=== PATIENT | female | born 1960 | race Two or more races ===

== ENCOUNTER → 2017-03-07 | Outpatient (REF) | payer OTHER, MEDICARE ==
[~2017-03-07] MED LIST: ASPI81TA85 PO; BUSP10TA PO; CALC250T PO; CLIM0.05 TD; CO Q100C10 PO; GABA-283 PO; LEVO75TA34 PO; LIDO5DIS41 TD; LIPI20TA PO; MAGN250T11 PO; MULTLIQ7 PO; MUTIVITAMIN PO; POTA10CA32 PO; SPIR25TA2 PO; TORS20TA2 PO; XANA0.25 PO; [UNRECOGNIZED DRUG - OTHER] PO
[2017-03-07 18:36] LABS: BACTERIA, URINE SMALL AMOUNT; HYALINE CAST, URINE NONE SEEN /lpf (0-1); MICROSCOPIC EXAM PERFORMED; SQUAMOUS EPITHELIAL CELL URINE LARGE AMOUNT /hpf (SMALL AMT); WBC, URINE 20-30 /hpf (0-3)
== END ==
LOC: M SMT 16:37
PROVIDERS: ATTEND Specialist
DX: R33.9 Retention of urine, unspecified (principal); R35.0 Frequency of micturition

== ENCOUNTER → 2017-03-21 | Outpatient (REF) | payer OTHER, MEDICARE ==
[2017-03-21 18:38] LABS: BACTERIA, URINE NONE SEEN; HYALINE CAST, URINE NONE SEEN /lpf (0-1); MICROSCOPIC EXAM PERFORMED; RBC, URINE NONE SEEN /hpf (0-3); SQUAMOUS EPITHELIAL CELL URINE NONE SEEN /hpf (SMALL AMT); WBC, URINE NONE SEEN /hpf (0-3)
== END ==
LOC: M SMT 16:52
PROVIDERS: ATTEND Specialist
DX: N39.0 Urinary tract infection, site not specified (principal)

== ENCOUNTER → 2017-09-24 | Outpatient (CLI) | payer MEDICARE, MEDICAID | LOC: M RAD 13:53 | DX: M79.651 Pain in right thigh (principal); L03.115 Cellulitis of right lower limb; Z86.718 Personal history of other venous thrombosis and embolism | CPT/HCPCS: 93971 ==

== ENCOUNTER → 2018-02-22 | Outpatient (CLI) | payer MEDICARE, MEDICAID | LOC: M PLARAD 07:32 | DX: M51.27 Other intervertebral disc displacement, lumbosacral region (principal); M51.36 Other intervertebral disc degeneration, lumbar region; M47.816 Spondylosis without myelopathy or radiculopathy, lumbar region; M79.1 Myalgia; M46.1 Sacroiliitis, not elsewhere classified | CPT/HCPCS: 72148 ==

== ENCOUNTER 2018-08-01 00:04 | Emergency (ER) | payer MEDICARE, MEDICAID ==
[~2018-08-01] VITALS: Ht 152.4 cm; Wt 56.8 kg
[~2018-08-01 00:04] MED LIST changes: -GABA-283 PO; +GABA-845 PO; +SPIR-10 PO; -SPIR25TA2 PO
[2018-08-01] MEDS ORDERED: K-TA10TA2 PO (00:41)
[2018-08-01] MEDS ORDERED: CENTCHW3 PO (00:41)
[2018-08-01] MEDS ORDERED: OCUVTAB4 PO (00:41)
[2018-08-01] MEDS ORDERED: SYST1SOL OP (00:41)
[2018-08-01 00:51] LABS: BLOOD UREA NITROGEN 20 MG/DL (7-18); CALCIUM LEVEL 8.3 MG/DL (8.5-10.1); CARBON DIOXIDE LEVEL 33 MEQ/L (21-32); CHLORIDE LEVEL 100 MEQ/L (98-107); CK-MB VALUE MASS < 1.0 NG/ML (<3.6); CPK CREATINE PHOSPHOKINASE 74 U/L (26-192); CREATININE FOR GFR 1.13 MG/DL (0.55-1.30); GLOMERULAR FILTRATION RATE 52.5 (>51); GLUCOSE, FASTING 99 MG/DL (70-100); MB/CK RELATIVE INDEX 1.35 (< OR =4); POTASSIUM SERUM 3.2 MEQ/L (3.5-5.1); SODIUM LEVEL 139 MEQ/L (136-145); TROPONIN I < 0.02 NG/ML (< 0.10)
[2018-08-01 01:21] LABS: BASO # 0.1 10^3/uL (0.0-0.2); BASO % 0.6 % (0.0-1.0); EOS # 0.4 10^3/uL (0.0-0.50); EOS % 3.4 % (0.0-3.0); HEMATOCRIT 39.6 % (36.0-47.0); HEMOGLOBIN 13.8 g/dl (12.0-15.5); LYMPH % 26.4 % (24.0-44.0); MEAN CORPUSCULAR HEMOGLOBIN 31.5 pg (27.0-33.0); MEAN CORPUSCULAR HGB CONC 34.8 g/dl (32.0-36.5); MEAN CORPUSCULAR VOLUME 90.4 fl (80.0-96.0); MONO # 0.8 10^3/uL (0.0-0.8); MONO % 7.2 % (0.0-5.0); PLATELET COUNT, AUTOMATED 282 10^3/uL (150-450); RED BLOOD COUNT 4.38 10^6/uL (4.00-5.40); WHITE BLOOD COUNT 11.3 10^3/uL (4.0-10.0)
[2018-08-01 01:31] LABS: ALT/SGPT 31 U/L (12-78); BILIRUBIN,TOTAL 0.5 MG/DL (0.2-1.0)
[2018-08-01 01:32] LABS: ALBUMIN 3.8 GM/DL (3.2-5.2); BILIRUBIN,DIRECT 0.2 MG/DL (0.0-0.2); LIPASE 177 U/L (73-393); TOTAL PROTEIN 7.2 GM/DL (6.4-8.2)
[2018-08-01] MEDS ORDERED: GABAPENTIN 300 MG CAP PO ONE (01:45)
[2018-08-01] MEDS ORDERED: NS 1,000 ML IV ONE (01:45)
[2018-08-01] MEDS: GASTROGRAFIN SOLUTION 30ML PO SCH ×2 (02:00→02:35)
[2018-08-01] MEDS ORDERED: POTASSIUM CHLORIDE 10 MEQ SR TABLET PO ONE (02:00)
[2018-08-01 02:15] LABS: ETHYL ALCOHOL (ETHANOL) < 0.003 % (0.000-0.010)
[2018-08-01] MEDS ORDERED: ISOVUE-370 76% 100ML VIAL (Q9967) As Ordered ONE (03:19)
--- NOTE | 2018-08-01 04:18 | REPVR ---
EXAM: CT Abdomen and Pelvis With Contrast EXAM DATE/TIME: 08/01/2018 1:34 AM CLINICAL HISTORY: 57 years old, female; Pain; Abdominal pain; Flank; Right; Additional info: Right flank pain TECHNIQUE: Axial computed tomography images of the abdomen and pelvis with intravenous contrast. All CT scans at this facility use at least one of these dose optimization techniques: automated exposure control; mA and/or kV adjustment per patient size (includes targeted exams where dose is matched to clinical indication); or iterative reconstruction. Coronal and sagittal reformatted images were created and reviewed. CONTRAST: Contrast Material: 100 ml of iso; Contrast Route: ac COMPARISON: No relevant prior studies available. FINDINGS: Lower thorax: No acute findings. ABDOMEN: Liver: Normal. No mass. Gallbladder and bile ducts: Status post cholecystectomy. Pancreas: Normal. No ductal dilation. Spleen: Normal. No splenomegaly. Adrenals: Normal. No mass. Kidneys and ureters: Normal. No hydronephrosis. Stomach and bowel: Normal. No obstruction. No mucosal thickening. Appendix: No evidence of appendicitis. PELVIS: Bladder: Unremarkable as visualized. Reproductive: Status post hysterectomy. ABDOMEN and PELVIS: Intraperitoneal space: Normal. No free air. No significant fluid collection. Bones/joints: Severe stenosis of the spinal canal at L4-5 with a broad central disc bulge Soft tissues: Unremarkable. Vasculature: Normal. No abdominal aortic aneurysm. Lymph nodes: Multiple borderline enlarged mesenteric lymph nodes IMPRESSION: No bowel obstruction. Normal appendix. No hydronephrosis or nephrolithiasis bilaterally. Severe stenosis of the spinal canal at L4-5 with a broad central disc bulge Electronically signed by: Amilcar Rodriguez On 08/01/2018 04:18:17 AM
[2018-08-01 04:30] VITALS: BP 108/69
[2018-08-01] MEDS ORDERED: NAPR-50 PO (04:42)
[2018-08-01] MEDS ORDERED: NAPROXEN 250 MG TAB PO ONE (04:45)
--- NOTE | 2018-08-01 08:20 | ECGEPIP ---
Stationary ECG Study [facility] - ED Test Date: 2018-08-01 Pat Name: EDER ALLEN Department: Room: - Gender: F [employer]: gt : 1960 Requested By: JING Perdomo Order Number: [id number] Reading MD: Adryan Dang Measurements Intervals [place] Rate: 78 P: 51 [place]: 152 QRS: 37 QRSD: 80 T: 21 QT: 386 QTc: 441 Interpretive Statements SINUS RHYTHM POSSIBLE LEFT ATRIAL ENLARGEMENT INCOMPLETE RIGHT BUNDLE BRANCH BLOCK SIMILAR TO 09/06/14 Electronically Signed On 08-01-2018 8:19:52 EST by Adryan Dang
--- NOTE | 2018-08-01 08:59 | REP ---
Chest one-view HISTORY: Chest pain Comparison: 09/06/2014 The lungs are clear. The heart is normal in size. The pulmonary vasculature is normal in appearance. Impression: No acute disease. Electronically Signed by Maciej Pereira MD 08/01/2018 08:49 A
--- NOTE | 2018-08-05 20:44 | ED PDOC ---
Post-Departure Follow-Up dr martinez faxed formal report of ct abd/p for fu Donnie Birmingham MD Aug 05, 2018 20:44
== END 2018-08-01 04:59 | disposition home or self-care (01) ==
LOC: M ED 00:04
DX: R07.89 Other chest pain (principal); I45.19 Other right bundle-branch block; G89.29 Other chronic pain; G62.9 Polyneuropathy, unspecified; M48.061 Spinal stenosis, lumbar region without neurogenic claudication; Z79.82 Long term (current) use of aspirin; Z79.899 Other long term (current) drug therapy; Z88.1 Allergy status to other antibiotic agents; Z88.5 Allergy status to narcotic agent; Z88.8 Allergy status to other drugs, medicaments and biological substances
CPT/HCPCS: 36415; 71045; 74177; 80048; 80076; 81001; 82550; 82553; 83690; 84484; 85025; 87086; 93005; 93041; 94760; 96360; 99285; G0480; Q9963; Q9967

== ENCOUNTER → 2018-10-05 | Outpatient (REF) | payer MEDICARE, MEDICAID ==
[~2018-10-05] MED LIST changes: +CENTCHW3 PO; +K-TA10TA2 PO; +NAPR-837 PO; +OCUVTAB4 PO; +SYST1SOL OP
== END ==
LOC: M LAB REF 09:39
PROVIDERS: ATTEND Physician Assistant
DX: R30.0 Dysuria (principal)

== ENCOUNTER → 2019-04-11 | Outpatient (REF) | payer MEDICARE, MEDICAID | LOC: M LAB REF 10:18 | PROVIDERS: ATTEND Nurse Practitioner Family | DX: R30.0 Dysuria (principal) ==

== ENCOUNTER → 2019-05-07 | Outpatient (REF) | payer MEDICARE, MEDICAID | LOC: M LAB REF 16:53 | PROVIDERS: ATTEND Physician Assistant | DX: N39.0 Urinary tract infection, site not specified (principal) ==

== ENCOUNTER → 2019-07-01 | Outpatient (REF) | payer MEDICARE, MEDICAID | LOC: M LAB REF 12:37 | PROVIDERS: ATTEND Physician Assistant | DX: N39.0 Urinary tract infection, site not specified (principal) ==

== ENCOUNTER → 2020-02-18 | Outpatient (REF) | payer MEDICARE, MEDICAID ==
[~2020-02-18] MED LIST changes: -ASPI81TA85 PO; +ASPI81TA86 PO
== END ==
LOC: M WUC 09:27
PROVIDERS: ATTEND Nurse Practitioner Family
DX: N39.0 Urinary tract infection, site not specified (principal)

== ENCOUNTER 2020-11-13 01:22 | Emergency (ER) | payer MEDICARE, MEDICAID ==
[~2020-11-13] VITALS: Ht 152.4 cm; Wt 66.0 kg
[~2020-11-13 01:22] MED LIST changes: +GABA-283 PO; -GABA-845 PO
[2020-11-13] MEDS ORDERED: NEUR300C (01:35)
[2020-11-13] MEDS ORDERED: CYPR4TA (01:35)
[2020-11-13] MEDS ORDERED: PANT40TA29 (01:35)
[2020-11-13] MEDS ORDERED: METH4PACK (01:35)
[2020-11-13] MEDS ORDERED: HYDR50TA70 PO (04:47)
[2020-11-13] MEDS ORDERED: hydrOXYzine 50 MG TAB PO ONE (04:50)
[2020-11-13 05:20] VITALS: BP 130/64
== END 2020-11-13 05:25 | disposition home or self-care (01) ==
LOC: M ED 01:22
DX: L50.9 Urticaria, unspecified (principal); G62.9 Polyneuropathy, unspecified; Z79.899 Other long term (current) drug therapy; Z79.890 Hormone replacement therapy; Z88.1 Allergy status to other antibiotic agents; Z88.5 Allergy status to narcotic agent; Z88.8 Allergy status to other drugs, medicaments and biological substances

== ENCOUNTER 2020-12-21 00:20 | Emergency (ER) | payer MEDICARE, MEDICAID ==
[~2020-12-21] VITALS: Ht 152.4 cm; Wt 65.5 kg
[~2020-12-21 00:20] MED LIST changes: +CYPR4TA; +HYDR50TA70 PO; +METH4PACK; +NEUR300C; +PANT40TA29
[2020-12-21 00:52] LABS: BASO % 0.2 % (0.0-1.0); EOS # 0.1 10^3/uL (0.0-0.5); EOS % 0.6 % (0.0-3.0); HEMATOCRIT 39.7 % (36.0-47.0); LYMPH # 1.5 10^3/uL (1.5-5.0); MEAN CORPUSCULAR HEMOGLOBIN 30.8 pg (27.0-33.0); MEAN CORPUSCULAR HGB CONC 32.7 g/dl (32.0-36.5); MEAN CORPUSCULAR VOLUME 94.1 fl (80.0-96.0); MONO # 0.5 10^3/uL (0.0-0.8); MONO % 4.8 % (2.0-8.0); NEUTROPHILS # 8.7 10^3/uL (1.5-8.5); NEUTROPHILS % 79.8 % (36.0-66.0); PLATELET COUNT, AUTOMATED 264 10^3/uL (150-450); RED BLOOD COUNT 4.22 10^6/uL (4.00-5.40); WHITE BLOOD COUNT 10.9 10^3/uL (4.0-10.0)
[2020-12-21] MEDS ORDERED: PRED10TA2 (00:57)
[2020-12-21] MEDS ORDERED: BUME0.5T2 (00:57)
[2020-12-21 01:10] LABS: ERYTHROCYTE SEDIMENTATION RATE 16 mm/hr (0-30)
[2020-12-21 01:18] LABS: ALBUMIN 3.8 GM/DL (3.2-5.2); ALT/SGPT 52 U/L (12-78); BILIRUBIN,DIRECT 0.2 MG/DL (0.0-0.2); BILIRUBIN,TOTAL 0.7 MG/DL (0.2-1.0); BLOOD UREA NITROGEN 15 MG/DL (7-18); C REACTIVE PROTEIN QUANTITATIV 2.99 MG/DL (0.00-0.30); CARBON DIOXIDE LEVEL 32 MEQ/L (21-32); CHLORIDE LEVEL 105 MEQ/L (98-107); CREATININE FOR GFR 0.91 MG/DL (0.55-1.30); GLOMERULAR FILTRATION RATE > 60.0 (>45); GLUCOSE, FASTING 110 MG/DL (70-100); POTASSIUM SERUM 3.8 MEQ/L (3.5-5.1); SODIUM LEVEL 142 MEQ/L (136-145); TOTAL PROTEIN 6.8 GM/DL (6.4-8.2)
[2020-12-21] MEDS ORDERED: methylPREDNISolone 125MG 2ML VIAL IV ONE (01:50)
[2020-12-21] MEDS ORDERED: diphenhydrAMINE 50MG/ML VIAL (J1200) IV ONE (01:50)
[2020-12-21] MEDS ORDERED: FAMOTIDINE IV BAG 20 MG in IV 1 EA IV ONE (01:50)
[2020-12-21 02:25] LABS: COMPLEMENT C4 34 MG/DL (10-40)
[2020-12-21 02:59] LABS: RSV AMPLIFICATION NEGATIVE (NEGATIVE)
[2020-12-21 03:45] VITALS: BP 129/76
[2020-12-21] MEDS ORDERED: PRED20TA PO (03:54)
== END 2020-12-21 04:05 | disposition home or self-care (01) ==
LOC: M ED 00:20
DX: L29.9 Pruritus, unspecified (principal); T78.3XXA Angioneurotic edema, initial encounter; X58.XXXA Exposure to other specified factors, initial encounter; Y92.89 Other specified places as the place of occurrence of the external cause; G62.9 Polyneuropathy, unspecified; Z88.1 Allergy status to other antibiotic agents; Z88.5 Allergy status to narcotic agent; Z88.8 Allergy status to other drugs, medicaments and biological substances; Z79.899 Other long term (current) drug therapy
CPT/HCPCS: 80048; 80076; 83519; 85025; 85280; 85652; 86140; 86160; 86161; 86850; 86900; 86901; 87631; 93041; 94760; 96365; 96375; 99285; J1200; J2930

== ENCOUNTER → 2022-08-16 | Outpatient (CLI) | payer MEDICARE, MEDICAID ==
[~2022-08-16] MED LIST changes: +BUME0.5T2; -POTA10CA32 PO; +POTA10CA33 PO; +PRED10TA2; +PRED20TA PO
== END ==
LOC: M PLAIMG 11:41
PROVIDERS: ATTEND Internal Medicine Cardiovascular Disease
DX: Z86.718 Personal history of other venous thrombosis and embolism (principal)

== ENCOUNTER → 2022-08-16 | Outpatient (CLI) | payer MEDICARE, MEDICAID | LOC: M WHC 10:19 | PROVIDERS: ATTEND Internal Medicine Cardiovascular Disease | DX: Z86.718 Personal history of other venous thrombosis and embolism (principal) ==

== ENCOUNTER → 2023-01-03 | Outpatient (CLI) | payer MEDICARE, MEDICAID ==
[~2023-01-03] MED LIST changes: -K-TA10TA2 PO; +POTA-165 PO; -POTA10CA33 PO; +POTA10CA60 PO
== END ==
LOC: M WUC 09:22
PROVIDERS: ATTEND Physician Assistant
DX: S90.221A Contusion of right lesser toe(s) with damage to nail, initial encounter (principal); X58.XXXA Exposure to other specified factors, initial encounter; Y99.9 Unspecified external cause status; Y92.9 Unspecified place or not applicable

== ENCOUNTER → 2023-02-09 | Outpatient (REF) | payer MEDICARE, MEDICAID ==
[~2023-02-09] MED LIST changes: -GABA-283 PO; +GABA-284 PO
== END ==
LOC: M LAB REF 16:14
PROVIDERS: ATTEND Physician Assistant
DX: R30.0 Dysuria (principal)

== ENCOUNTER → 2023-02-27 | Outpatient (REF) | payer MEDICARE, MEDICAID ==
[2023-02-27 18:03] LABS: APPEARANCE, URINE CLEAR (CLEAR); BACTERIA, URINE AUTO NEGATIVE (NEGATIVE); BILIRUBIN, URINE AUTO NEGATIVE (NEGATIVE); BLOOD, URINE BLOOD NEGATIVE (NEGATIVE); COLOR, URINE YELLOW (YELLOW); GLUCOSE, URINE (UA) AUTO NEGATIVE (NEGATIVE); KETONE, URINE AUTO NEGATIVE (NEGATIVE); LEUKOCYTE ESTERASE, URINE AUTO NEGATIVE (NEGATIVE); NITRITE, URINE AUTO NEGATIVE (NEGATIVE); PROTEIN, URINE AUTO NEGATIVE (NEGATIVE); RBC, URINE AUTO 0 /HPF (0-3); SPECIFIC GRAVITY URINE AUTO 1.005 (1.002-1.035); SQUAMOUS EPITHELIAL CELL UR AU 1 /HPF (0-6); UROBILINOGEN, URINE AUTO 0.2 mg/dL (0.0-2.0); WBC, URINE AUTO 0 /HPF (0-3)
== END ==
LOC: M LAB REF 16:26
PROVIDERS: ATTEND Internal Medicine Cardiovascular Disease
DX: N39.0 Urinary tract infection, site not specified (principal)

== ENCOUNTER → 2023-03-01 | Outpatient (CLI) | payer MEDICARE, MEDICAID ==
[2023-03-01 19:01] LABS: RHEUMATOID FACTOR QUANT 4.6 IU/ML (<14)
[2023-03-01 19:03] LABS: FOLATE 22.03 NG/ML (>5.4); THYROID STIMULATING HORMONE 0.02 uIU/ML (0.55-4.78)
== END ==
LOC: M WUC 11:57
PROVIDERS: ATTEND Psychiatry & Neurology Neurology
DX: R51.9 Headache, unspecified (principal); R41.3 Other amnesia

== ENCOUNTER → 2023-10-06 | Outpatient (REF) | payer MEDICARE, MEDICAID | LOC: M LAB REF 19:54 | PROVIDERS: ATTEND Physician Assistant | DX: N39.0 Urinary tract infection, site not specified (principal) ==